=== PATIENT | male | born 1985 | race Caucasian/White ===

== ENCOUNTER 2017-01-23 20:29 | Emergency (ER) | payer BC ==
[~2017-01-23] VITALS: Ht 188 cm; Wt 93.0 kg
--- NOTE | ~2017-01-23 | CT17 ---
[facility] A Service of [facility] RADIOLOGY TEXT RESULTS PATIENT: OCTAVIO KIM LOCATION: [facility] : [birth year] UNIT #: [id number] AGE: [address]: Chepe Hernandez MD SEX: M ORDER DR: [id number] [facility] [address] [place], [place] [address] [id number] E MR#: [id number] Acc #: [id number] NAME: OCTAVIO KIM : 1985 SEX: M STUDY DATE/TIME: 01/24/2017 0:40 UNIT: [facility] ROOM: STUDY DESCRIPTION: CT Angio Head Attending Physician: Azeem Hernandez M.D. Ordering Physician: Azeem Hernandez M.D. Primary Care Physician: Primary Care Physician No MEDICAL IMAGING REPORT This report is preliminary unless electronic signature is present EXAM CT scan of the head and neck with contrast with carotid CT angiography HISTORY Blurred vision, headache and pressure sensation between the eyes beginning earlier the day of arrival. This is accompanied by dizziness. TECHNIQUE Thin section imaging was obtained from the mid mediastinum to the top of the head with contrast. 100 mL of Isovue was used. CT angiography was performed with thick sliding MIPs, curved planar reformats and 3-D volumetric imaging with surface shaded and volume shaded display. This CT exam was performed with one or more of the following radiation dose reduction techniques: automatic exposure control, adjustment of mA and/or kV according to patient size, and iterative reconstruction. FINDINGS Extravascular structures are unremarkable. The CT angiographic study is normal. There is no evidence of atherosclerotic disease, fibromuscular hyperplasia or dissection. No aneurysms are seen. Intracranially there is no evidence of stenosis or branch vessel occlusion. IMPRESSION Normal. Dictated by... Chandler Olvera M.D. THIS IS AN ELECTRONICALLY VERIFIED REPORT Chandler Olvera M.D. at 01/24/2017 4:43 PM [facility] A Service of [facility] / [facility] RADIOLOGY TEXT RESULTS PATIENT: OCTAVIO KIM LOCATION: [facility] : 81 UNIT #: [id number] AGE: [address]: Chepe Hernandez MD SEX: M ORDER DR: ANN-MARIE/saul TD: 01/24/2017 11:23 JOB #: [id number] MEDICAL IMAGING REPORT Page 1 of 1 COPY
--- NOTE | ~2017-01-23 | CT71 ---
[facility] A Service of [facility] RADIOLOGY TEXT RESULTS PATIENT: OCTAVIO KIM LOCATION: [facility] : 81 UNIT #: [id number] AGE: [address]: Chepe Hernandez MD SEX: M ORDER DR: [id number] [facility] [address] [place], [place] [address] [id number] E MR#: [id number] Acc #: [id number] NAME: OCTAVIO KIM : 1985 SEX: M STUDY DATE/TIME: 01/23/2017 23:07 UNIT: [facility] ROOM: STUDY DESCRIPTION: CT Head Wo Contrast Attending Physician: Azeem Hernandez M.D. Ordering Physician: Ed Doctor [id number] [facility] Primary Care Physician: Primary Care Physician No MEDICAL IMAGING REPORT This report is preliminary unless electronic signature is present EXAM CT head, noncontrast, 01/23/2017 HISTORY 31-year-old male in the ED complaining of new onset headache and blurred vision beginning at about 20:[address] examination of the head without IV contrast. This CT exam was performed with one or more of the following radiation dose reduction techniques: automatic exposure control, adjustment of mA and/or kV according to patient size, and iterative reconstruction. FINDINGS The examination is negative. No evidence of intracranial hemorrhage, mass, mass effect, cerebral edema, hydrocephalus or additional abnormality. The visualized upper paranasal sinuses are clear. IMPRESSION Negative head CT examination. Dictated by... Ghassan Maria M.D. THIS IS AN ELECTRONICALLY VERIFIED REPORT Ghassan Maria M.D. at 01/24/2017 5:05 PM NELIA/saul TD: 01/24/2017 09:12 JOB #: [id number] MEDICAL IMAGING REPORT [facility] A Service of [facility] RADIOLOGY TEXT RESULTS PATIENT: OCTAVIO KIM LOCATION: [facility] : 81 UNIT #: [id number] AGE: [address]: Chepe Hernandez MD SEX: M ORDER DR: Page 1 of 1 COPY
--- NOTE | ~2017-01-23 | CT23 ---
[facility] A Service of [facility] & [facility] RADIOLOGY TEXT RESULTS PATIENT: OCTAVIO KIM LOCATION: [facility] : 81 UNIT #: [id number] AGE: [address]: Chepe Hernandez MD SEX: M ORDER DR: [id number] [facility] [address] [place], [place] [address] [id number] E MR#: [id number] Acc #: [id number] NAME: OCTAVIO KIM : 1985 SEX: M STUDY DATE/TIME: 01/24/2017 0:40 UNIT: [facility] ROOM: STUDY DESCRIPTION: CT Angio Neck Attending Physician: Chepe Hernandez Ordering Physician: Chepe Hernandez, [id number] Primary Care Physician: Primary Care Physician No MEDICAL IMAGING REPORT This report is preliminary unless electronic signature is present EXAM CT angiogram of the neck HISTORY FINDINGS Please see CT angiogram of the head for results. Dictated by... Chandler Olvera M.D. THIS IS AN ELECTRONICALLY VERIFIED REPORT Chandler Olvera M.D. at 01/24/2017 4:43 PM Hammad TD: 01/24/2017 11:24 JOB #: [id number] MEDICAL IMAGING REPORT Page 1 of 1 COPY
[2017-01-23 23:28] LABS: CALCIUM SERUM 10.1 mg/dL (8.4-10.2); GLOM FILT RATE Estimated 98.5 mL/min (>60); POTASSIUM 3.8 mmol/L (3.5-5.1)
== END 2017-01-24 04:55 | disposition home or self-care (01) ==
LOC: CED 20:29
PROVIDERS: Emergency Medicine
DX: H54.7 Unspecified visual loss (principal)
CPT/HCPCS: 70450; 70496; 70498; 80048; 99285; Q9967